=== PATIENT | female | born 1980 | race American Indian/Alaskan Native ===

== ENCOUNTER 2016-09-01 04:05 | Emergency (ER) | payer OTHER ==
[2016-09-01] MEDS ORDERED: NACL 0.9% 1000 ML 1,000 ML IV ONE (04:18)
[2016-09-01 04:59] LABS: Basophils % (Auto) 0.7 % (0.0-1.8); Hemoglobin 11.3 gm/dl (10.1-14.3); Mean Corpuscular HGB Conc 32 % (30-34); Mean Corpuscular Hemoglobin 27 pg (28-32); Mean Corpuscular Volume 83 fl (79-97); Platelet Count 323 K/mm3 (140-440); Red Blood Count 4.24 M/mm3 (3.65-5.03); Red Cell Distribution Width 13.9 % (13.2-15.2); White Blood Count 7.3 K/mm3 (4.5-11.0)
[2016-09-01 05:11] LABS: Partial Thromboplastin Time 29.7 Sec. (24.2-36.6)
[2016-09-01 05:25] LABS: Alanine Aminotransferase 30 units/L (7-56); Albumin 3.9 g/dL (3.9-5); Albumin/Globulin Ratio 1.3 %; Alkaline Phosphatase 55 units/L (35-129); Anion Gap 19 mmol/L; Bilirubin,Total 0.3 mg/dL (0.1-1.2); Blood Urea Nitrogen 6 mg/dL (7-17); Calcium 8.3 mg/dL (8.4-10.2); Carbon Dioxide 25 mmol/L (22-30); Glucose 83 mg/dL (65-100); Lipase 26 units/L (13-60); Potassium 3.6 mmol/L (3.6-5.0); Sodium 141 mmol/L (137-145)
[2016-09-01] MEDS ORDERED: NACL ONE (08:03)
--- NOTE | 2016-09-01 08:35 | Emergency Department Report ---
HPI - General Chief Complaint: GI Bleed Time Seen by Provider: 09/01/16 08:00 - HPI HPI: Room 7 The patient is a 36-year-old female presenting with a chief complaint of abdominal pain and hematochezia. The patient states she awakened this morning at 01:30 with right lower quadrant abdominal pain. Patient states she went to the bathroom and passed blood in stool. Patient states that approximately 03: 00 she had a second episode of hematochezia. The patient states she began to "freak out" and decided to come to the ED for evaluation. The patient currently complains of lower abdominal pain nausea without vomiting. Patient denies rectal pain fever or unexplained weight loss. Location: Gastrointestinal system Duration: [see above] Quality: Pressure Severity: Moderate Modifying factors: [see above] Context: [see above] Mode of transportation: The patient drove herself to the emergency department and there are no visitors present ED Past Medical Hx - Past Medical History Previous Medical History?: Yes Hx Hypertension: Yes - Surgical History Past Surgical History?: Yes Additional Surgical History: C SECTION / BREAST REDUCTION - Family History Family history: no significant - Social History Smoking Status: Never Smoker Substance Use Type: Alcohol (occasional) - Medications Home Medications: Home Medications Medication Instructions Recorded Confirmed Last Taken Type Hydrochlorothiazide [HCTZ] 25 mg PO QDAY #90 tablet 09/01/16 Unknown Rx Hydrocortisone [Anucort-HC SUPPOS] 25 mg RC BID #10 supp.rect 09/01/16 Unknown Rx Lisinopril/Hydrochlorothiazide 1 tab PO QDAY 09/01/16 09/01/16 Unknown History [Zestoretic 20-12.5 mg] traMADol [Ultram] 50 mg PO Q6HR PRN #14 tablet 09/01/16 Unknown Rx ED Review of Systems ROS: Stated complaint: VAGINAL BLEEDING/HEMATURIA Other details as noted in HPI Comment: All other systems reviewed and negative Constitutional: denies: chills, fever Eyes: denies: eye pain, eye discharge, vision change ENT: denies: ear pain, throat pain Respiratory: denies: cough, shortness of breath, wheezing Cardiovascular: denies: chest pain, palpitations Endocrine: no symptoms reported Gastrointestinal: abdominal pain, nausea, hematochezia. denies: vomiting Genitourinary: denies: urgency, dysuria, discharge Musculoskeletal: denies: back pain, joint swelling, arthralgia Skin: denies: rash, lesions Neurological: denies: headache, weakness, paresthesias Psychiatric: denies: anxiety, depression Hematological/Lymphatic: denies: easy bleeding, easy bruising Physical Exam - Physical Exam Vital Signs: Vital Signs 09/01/16 09/01/16 09/01/16 04:11 06:58 07:01 Temperature 98.3 F 98.7 F Pulse Rate 84 77 Pulse Rate [ Lying] Pulse Rate [ Sitting] Pulse Rate [ Standing] Respiratory 20 18 Rate Blood Pressure 164/113 Blood Pressure 156/96 [Left] Blood Pressure [Lying] Blood Pressure [Sitting] Blood Pressure [Standing] O2 Sat by Pulse 97 99 100 Oximetry 09/01/16 09/01/16 09/01/16 07:26 07:30 08:16 Temperature Pulse Rate 77 Pulse Rate [ 72 Lying] Pulse Rate [ 77 Sitting] Pulse Rate [ 76 Standing] Respiratory 19 Rate Blood Pressure 158/102 Blood Pressure [Left] Blood Pressure 172/108 [Lying] Blood Pressure 174/114 [Sitting] Blood Pressure 167/107 [Standing] O2 Sat by Pulse 86 98 Oximetry Physical Exam: GENERAL: The patient is well-developed well-nourished female lying on stretcher not appearing to be in acute distress. [] HEENT: Normocephalic. Atraumatic. Extraocular motions are intact. Patient has moist mucous membranes. NECK: Supple. Trachea midline CHEST/LUNGS: Clear to auscultation. There is no respiratory distress noted. HEART/CARDIOVASCULAR: Regular. There is no tachycardia. There is no gallop rub or murmur. ABDOMEN: Abdomen is soft, with diffuse discomfort to palpation. There is no rebound or guarding. Patient has normal bowel sounds. There is no abdominal distention. SKIN: There is no rash. There is no edema. There is no diaphoresis. NEURO: The patient is awake, alert, and oriented. The patient is cooperative. The patient has normal speech and gait. MUSCULOSKELETAL: There is no evidence of acute injury. RECTAL: No external hemorrhoids visualized. No anal fissures visualized. No rectal masses palpated. Faint Guaiac positive ED Course Vital Signs 09/01/16 09/01/16 09/01/16 04:11 06:58 07:01 Temperature 98.3 F 98.7 F Pulse Rate 84 77 Pulse Rate [ Lying] Pulse Rate [ Sitting] Pulse Rate [ Standing] Respiratory 20 18 Rate Blood Pressure 164/113 Blood Pressure 156/96 [Left] Blood Pressure [Lying] Blood Pressure [Sitting] Blood Pressure [Standing] O2 Sat by Pulse 97 99 100 Oximetry 09/01/16 09/01/16 09/01/16 07:26 07:30 08:16 Temperature Pulse Rate 77 Pulse Rate [ 72 Lying] Pulse Rate [ 77 Sitting] Pulse Rate [ 76 Standing] Respiratory 19 Rate Blood Pressure 158/102 Blood Pressure [Left] Blood Pressure 172/108 [Lying] Blood Pressure 174/114 [Sitting] Blood Pressure 167/107 [Standing] O2 Sat by Pulse 86 98 Oximetry ED Medical Decision Making - Lab Data Result diagrams: 09/01/16 04:29 09/01/16 04:29 Laboratory Tests 09/01/16 09/01/16 09/01/16 04:28 04:29 04:29 WBC 7.3 RBC 4.24 Hgb 11.3 Hct 35.0 MCV 83 MCH 27 L MCHC 32 RDW 13.9 Plt Count 323 Lymph % (Auto) 47.4 H Storey % (Auto) 4.5 Eos % (Auto) 2.0 Baso % (Auto) 0.7 Lymph # 3.5 Storey # 0.3 Eos # 0.1 Baso # 0.1 Seg Neutrophils % 45.4 Seg Neutrophils # 3.3 PT 13.1 INR 1.00 APTT 29.7 Sodium Potassium Chloride Carbon Dioxide Anion Gap BUN Creatinine Estimated GFR BUN/Creatinine Ratio Glucose Calcium Total Bilirubin AST ALT Alkaline Phosphatase Total Protein Albumin Albumin/Globulin Ratio Lipase Blood Type A POSITIVE Antibody Screen Negative 09/01/16 04:29 WBC RBC Hgb Hct MCV MCH MCHC RDW Plt Count Lymph % (Auto) Storey % (Auto) Eos % (Auto) Baso % (Auto) Lymph # Storey # Eos # Baso # Seg Neutrophils % Seg Neutrophils # PT INR APTT Sodium 141 Potassium 3.6 Chloride 101.0 Carbon Dioxide 25 Anion Gap 19 BUN 6 L Creatinine 0.8 Estimated GFR > 60 BUN/Creatinine Ratio 7.50 Glucose 83 Calcium 8.3 L Total Bilirubin 0.3 AST 20 ALT 30 Alkaline Phosphatase 55 Total Protein 7.0 Albumin 3.9 Albumin/Globulin Ratio 1.3 Lipase 26 Blood Type Antibody Screen - Radiology Data Radiology results: report reviewed (CT abdomen and pelvis (verbal report discussed with radiologist)), image reviewed (CT abdomen and pelvis) CT abdomen and pelvis (discussed with radiologist, written report not available at this time)-states multiple hypodense lesions in the uterus which appears enlarged and likely represents uterine fibroids. These appear to be big enough to affect ureters bilaterally. No significant hydronephrosis seen but there appears to be "back pressure." No colonic abnormality seen - Differential Diagnosis hemorrhoids, colonic mass, diverticulosis, Critical care attestation.: If time is entered above; I have spent that time in minutes in the direct care of this critically ill patient, excluding procedure time. ED Disposition Clinical Impression: Rectal bleeding, Enlarged uterus Disposition: DISCHARGED TO HOME OR SELFCARE Is pt being admited?: No Does the pt Need Aspirin: No Condition: Stable Instructions: Rectal Bleeding (ED), Uterine Fibroids (ED) Additional Instructions: Return to the emergency department immediately should you develop worsening symptoms, fever, inability to tolerate food or liquid or any other concerns. Prescriptions: Hydrochlorothiazide [HCTZ] 25 mg PO QDAY #90 tablet Hydrocortisone [Anucort-HC SUPPOS] 25 mg RC BID #10 supp.rect traMADol [Ultram] 50 mg PO Q6HR PRN #14 tablet PRN Reason: Pain Referrals: ROSA ISELA GARCIA MD [Staff Physician] - 2-3 Days (Dr. Garcia is a art history professor. Please follow up with him for further evaluation) PRIMARY CAREMD [Primary Care Provider] - 3-5 Days GURWINDER BARROSO MD [Staff Physician] - 3-5 Days (Dr. Barroso is an SPORTS DIRECTOR. Please follow up with him for further evaluation of your enlarged uterus) LUIS HOUSE MD [Staff Physician] - 3-5 Days (Dr. House is a primary physician. Please follow up with him for further evaluation) Forms: Accompanied Note Time of Disposition: 10:02
[2016-09-01 08:44] LABS: Bacteria,Urine 2+ /HPF (Negative); Bilirubin,Urine NEG (Negative); Blood,Urine NEG (Negative); Ketones,Urine NEG (Negative); Leukocyte Esterase,Urine TR (Negative); Mucus,Urine FEW /HPF; Nitrite,Urine NEG (Negative); Protein,Urine <15 mg/dL mg/dL (Negative); Urobilinogen,Urine < 2.0 mg/dL (<2.0)
[2016-09-01 09:56] VITALS: BP 155/95
[2016-09-01] MEDS ORDERED: TYLENOL PO ONE (10:13)
--- NOTE | 2016-09-01 11:15 | Cat Scan Report ---
CT ABDOMEN AND PELVIS WITH CONTRAST INDICATION: Lower abdominal pain, rectal bleeding. COMPARISON: 05/28/2010. FINDINGS: Abdomen and pelvis CT performed following intravenous administration of 100 cc of Omnipaque 300. LUNG BASES: Right hemidiaphragm slightly elevated. Nonspecific distal esophageal wall thickening, not excluded for gastroesophageal reflux and/or hiatal hernia, amongst others. ABDOMEN: Liver, spleen, gallbladder, pancreas, adrenals, nonaneurysmal abdominal aorta and IVC within normal limits. No ascites or size significant adenopathy with few small, subcentimeter mesenteric and retroperitoneal lymph nodes. Nonopacified GI tract evaluation limited though grossly nonobstructive. Normal appendix. Mild to moderate colonic stool/possible constipation. Small fat-containing umbilical hernia with a transverse neck of 7 mm again noted as also umbilical piercing ornament. Normal renal enhancement within an indeterminate, subcentimeter right upper renal cortical hypodensity. Increased back pressure with mild fullness of both ureters and the renal pelves noted with mild right hydronephrosis. No significant left intrarenal collecting system fullness noted at this time. Tiny, 1 mm right interpolar calcification may be stable, axial image 145, series 2. PELVIS: IUD again noted, creating streak artifact though displaced to the left with extensive interval heterogeneous, slightly hypodense enlargement of the uterus predominantly on the right not excluded for an approximately 12.2 x 7.6 cm possible fibroid as on image 293, series 2 with a small intrinsic calcification also noted as on axial image 305. Its craniocaudal extent is approximately 8.6 cm. Few smaller fibroids towards the fundus are also new, some partly exophytic and measuring approximately 2.7 cm on axial image 272, series 2. Another dominant fundal hypodense fibroid towards the left is now approximately 3.1 cm, axial image 240, series 2. Urinary bladder intrinsically unremarkable except for slight extrinsic uterine impression. Small free fluid in the deep right hemipelvis again noted. Unremarkable rectosigmoid. No size significant adenopathy. Slight degenerative changes along the spine. CONCLUSION: 1. IUD again noted with significant interval uterine enlargement with multiple hypodense masses suspected for fibroids, the largest on the right, as detailed above. Other possibilities, including neoplasm however difficult to entirely exclude. AMPH[employer]IAN CREWMEMBER correlation recommended. 2. Presumed compression upon the distal ureters with increased back pressure to the kidneys now identified, as described. 3. Few other incidental findings, including distal esophageal prominence/thickening and tiny right nephrolithiasis, amongst others, as described. I phoned the above results to Dr. Hawkins in the ER, 9:50 AM, 09/01/2016. Thank you for the opportunity to participate in this patient's care.
== END 2016-09-01 10:59 | disposition home or self-care (01) ==
LOC: ED 04:05
DX: K62.5 Hemorrhage of anus and rectum (principal); N85.2 Hypertrophy of uterus; I10 Essential (primary) hypertension
CPT/HCPCS: 36415; 74177; 80053; 81001; 81025; 82271; 83690; 84703; 85025; 85610; 85730; 86850; 86900; 86901; 93005; 93010; 96360; 96361; 99285; J7030; Q9967

== ENCOUNTER 2017-01-07 16:52 | Emergency (ER) | payer OTHER ==
[2017-01-07] MEDS ORDERED: NORCO 5/325 PO ONE (19:01)
[2017-01-07] MEDS ORDERED: BENADRYL IM ONE (19:02)
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
[2017-01-07 20:24] VITALS: BP 160/89
== END 2017-01-07 22:06 | disposition home or self-care (01) ==
LOC: ED 16:52
DX: S93.402A Sprain of unspecified ligament of left ankle, initial encounter (principal); S16.1XXA Strain of muscle, fascia and tendon at neck level, initial encounter; R21 Rash and other nonspecific skin eruption; I10 Essential (primary) hypertension; V49.49XA Driver injured in collision with other motor vehicles in traffic accident, initial encounter; Y93.9 Activity, unspecified; Y92.9 Unspecified place or not applicable; Y99.9 Unspecified external cause status
CPT/HCPCS: 29515; 72125; 73610; 73630; 96372; 99284; J1200; J2930